=== PATIENT | female | born 1975 | race Caucasian/White ===

== ENCOUNTER 2017-05-23 20:54 | Inpatient (IN) | payer MEDICAID, OTHER ==
[~2017-05-23] VITALS: Ht 175.3 cm; Wt 100.0 kg
[2017-05-24] MEDS ORDERED: Alum-Mag Hydrox-Simeth 30 mL Suspension PO PRN (00:55)
[2017-05-24] MEDS ORDERED: DEP500A PO (02:45)
[2017-05-24] MEDS ORDERED: BENZ2TAB7 PO (03:13)
[2017-05-24] MEDS ORDERED: PROP20TA5 PO (03:13)
[2017-05-24] MEDS ORDERED: PALI234D IM (03:13)
--- NOTE | 2017-05-24 03:33 | NUR ---
Admission Note Patient is a 42 year old female KERVIN on a 72-hour hold brought by EMS to this MH unit from [facility]. Patient presented to [facility] ED on 05/23/17 with complaints of auditory hallucinations and anxiety. She has a history of methamphetamine and cocaine use, with most recent drug use one day prior to that admission. Patient has a history of multiple ER visits with similar symptoms noted previously and is non-compliant with medications. Physical assessment denies any acute medical/physical injury/need and none are apparent. VS wnl, allergies recorded History of depression, drug abuse, asthma, diabetes mellitus, alcoholism, hallucinations, psychosis, ureteritis, cervicitis, schizoaffective disorder Home medications reported include Depakote DR 500 mg PO BID, propranolol 20 mg PO BID, benztropine mesylate 2 mg PO, and Invega Sustenna 234 mg IM Patient is on Medicaid and has a Behavior[facility] family independence case manager, Peter Haji, in [facility] Admitted to this unit at 0025, brought to room and admission completed.
--- NOTE | 2017-05-24 04:14 | NUR ---
ADMIT/[id number] Pt arrived to unit at 0025 via stretcher. Pt sleepy and unable to sign paperwork. Changed clothing and asleep by 0045. Observed Q15 as ordered.
[2017-05-24 08:07] VITALS: BP 87/62; PULSE 72; RESP 14
--- NOTE | 2017-05-24 09:50 | NUR ---
Last Invega Shot given on 05/07/17, next is due on 06/05/17 per Elicia ___ at [facility].
--- NOTE | 2017-05-24 14:19 | NUR ---
Warehouse Selector/Counselor: S: "I want to be in the [employer]." O: Patient slept 5.0 hours last night per staff. Patient denies S/I and H/I. She reports auditory hallucinations, "since I was 2 months old." She also reports visual hallucinations "sometimes." Depression is 0/10. Anxiety was not rated. A: Patient is cooperative, distractible, confused at times, disorganized, anxious, no insight, no judgment. P: Follow the care plan, coordinate with out-patient providers.
[2017-05-24] MEDS ORDERED: risperiDONE 1 mg Tablet PO ONE (14:45)
--- NOTE | 2017-05-24 15:17 | NUR ---
NURSE NOTE DAY Pt has been in room much of shift. Up at 1200 for breakfast. Appears to be responding to internal stimuli. Distractible. Unresponsive to writers questioning. Pleasant, cooperative. BP 87/62 in AM, withheld propranolol. Continue with care plan.
[2017-05-24] MEDS: LORazepam 1 mg Tablet PO PRN (15:45)
--- NOTE | 2017-05-24 19:51 | NUR ---
Observations 1300 - 2000 Pt affect and mood was isolative, guarded, withdrawn, preoccupied and responding to internal stimuli. Pt was screaming, cussing, yelling at her voices. Pt was unsocial with staff and peers when out of her room. Pt attended meals in D.R. and ate 100% of her meals. Pt was yelling and cussing during dinner, staff escorted her to her room to finish her dinner. Pt was in her room most of the shift. Pt was observed every 15 minutes through the shift as ordered.
[2017-05-24] MEDS: risperiDONE 2 mg Tablet PO SCH (21:02)
--- NOTE | 2017-05-24 22:46 | NUR ---
Nurses Note Evening Patient has been screaming and yelling,responding to internal stimuli. She received an Ativan 1 mg at 1545 with eventual calming effect. Patient accepted Risperdal at HS. She ate well at dinner and shortly afterwards retired to bed. Will maintain q 15min. checks for safety and support,encourage continued medication compliance,reality test as tolerated. Addendum: 05/24/17 at 2250 by MAXI MIRANDA RN Amended: Links added.
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
--- NOTE | 2017-05-25 03:59 | NUR ---
Nursing Noc Pt noted to remain in bed this shift resting comfortable. Continuing to monitor mood, behavior and emotional state. q15 minute safety checks throughout the shift. CP
[2017-05-25 09:18] VITALS: BP 88/58; PULSE 111; RESP 18
--- NOTE | 2017-05-25 09:20 | NUR ---
NURSE MED NOTE Withheld 0830 dose of propranolol 20 mg. Blood pressure 88/58, right arm, manual cuff, sitting at 0915. Pulse 111. Respirations 18.
[2017-05-25] MEDS: Benzocaine-Menthol Lozenge 2/Pkg PO PRN ×2 (09:26→16:57)
[2017-05-25] MEDS: LORazepam 1 mg Tablet PO PRN ×2 (10:44→16:53)
--- NOTE | 2017-05-25 14:00 | NUR ---
NURSE NOTE DAY Mood: "I'm feeling pretty anxious, can I get an Ativan?" Endorses anxiety. Denies depression. Affect: Flat. Thought Process/Content: "Don't you put your fucking stefania in my fucking face." Pt observed actively responding to internal stimuli with aggressive, threatening language. Endorses AH, VH (blue and red forms, people following her). Behavior: Pt observed seated at table in dining room cursing and responding to internal stimuli in morning. PRNs/NURS: Gave PRN lorazepam 2 mg at 1045 for anxiety and agitation. Addendum: 05/25/17 at 1410 by ROLDAN BROCK RN Per Dr. Monson, begin taking blood glucose reading QA. Addendum: 05/25/17 at 1816 by ROLDAN BROCK RN PRN: hydroxyzine 50 mg at 1425; lorazepam 2 mg at 1653.
[2017-05-25] MEDS: hydrOXYzine Pamoate 25 mg Capsule PO PRN (14:25)
--- NOTE | 2017-05-25 15:45 | PCM.PNPSY ---
Subjective Date of Service May 25, 2017 Subjective The patient is heard loudly responding to apparent auditory hallucinations. "I had to defend my honor. I don't want to someone. Every one of you bitches are ." "Paid by Nicole Chopra to kill me." The patient required extensive redirection in order to get any answers. The patient expressed concern about propranolol and her low blood pressure. Given her restlessness it appears it was for acathisia but she was unable to discuss this topic. She denied other side effects. Sleep: 10.25 hours per staff. Appetite: Eating well. Suicidal and homicidal ideation: None reported Auditory hallucinations: Responding to multiple apparent loud hallucinations. Visual hallucinations: Unable to assess Other Psychotic Symptoms: Delusions as above Anxiety: 8.5-10 Depression: 8-06/10. Current Medications Current Medications Benzocaine/Menthol 1 lozenge Q2H PRN PO Last administered on 05/25/17 09:26; Admin Dose 1 LOZENGE; Start 05/24/17 at 00:55 Benztropine Mesylate 1 mg BID PO Last administered on 05/25/17 08:50; Admin Dose 1 MG; Start 05/24/17 at 14:40 Benztropine Mesylate 2 mg DAILY PO Last administered on 05/24/17 08:42; Admin Dose 2 MG; Start 05/24/17 at 08:30 Divalproex Sodium 500 mg BID PO Last administered on 05/25/17 08:49; Admin Dose 500 MG; Start 05/24/17 at 00:57 Hydroxyzine Pamoate 25-50 MG Q4H PRN PO Last administered on 05/25/17 14:25; Admin Dose 50 MG; Start 05/24/17 at 01:00 Ibuprofen 600 mg Q6H PRN PO Last administered on 05/24/17 16:49; Admin Dose 600 MG; Start 05/24/17 at 00:55 Lorazepam 1-2 MG Q4 PRN PO Last administered on 05/25/17 10:44; Admin Dose 2 MG; Start 05/24/17 at 01:00 Nicotine 1 patch DAILY TOPICAL Last administered on 05/25/17 08:49; Admin Dose 1 PATCH; Start 05/24/17 at 08:30 Nicotine Polacrilex 2 mg Q4H PRN BUCCAL Last administered on 05/25/17 09:24; Admin Dose 2 MG; Start 05/24/17 at 00:55 Risperidone 2 mg HS PO Last administered on 05/24/17 21:02; Admin Dose 2 MG; Start 05/24/17 at 21:00 Risperidone 2 mg ONCE ONCE PO Last administered on 05/24/17 15:05; Admin Dose 2 MG; Start 05/24/17 at 14:45; Stop 05/24/17 at 14:48; Status DC Mental Status Exam Vital Signs Vital Signs Date Time Temp Pulse Resp B/P Pulse Ox O2 Delivery O2 Flow Rate FiO2 05/25/17 09:18 111 18 88/58 Appearance: Unkept Attitude: Cooperative (marginally), Other (responding to voices.) Behavior: Distractible Affect: Blunted, Other (restless with toe tapping) Mood: Irritable, Anxious, Fearful Thought Process/Associations: Loose, Tangential Speech Production: Loud Speech Rate: Normal Speech Articulation: Other (somewhat dysarthric) Thought Content: Negativistic, Perseveration Danger to Self/Suicidal Ideati: None Danger to Others: None Delusions: Paranoid (Endorses) Hallucinations: Auditory (Endorses), Visual (Denies) Consciousness: Alert, Hyper-vigilant Orientation: Person, Place Memory: Untestable Estimate Intellectual Function: Average (to ), Below Average Attention/Concentration & Cogn: Impaired Insight: Limited Judgement: Poor Mental Health Plan The patient is a 42-year-old female with a history of schizoaffective disorder who was recently switched to Invega Sustenna and appears to have had a decompensation in symptoms. The patient may have sufficient Risperdal or has insufficiently stabilized on the long-acting injectable resulting in her decompensation. Her recent use of methamphetamine has also likely worsened her condition. The patient agreed to a 14 day inpatient order. She has been medication adherent but is concerned about propranolol. The patient continues to respond to internal stimuli and may need further titration of oral risperidone prior to her next Invega injection. [place] AXIS I: 1. Schizoaffective disorder, bipolar type by history. 2. Methamphetamine use disorder. 3. MDMA use disorder. AXIS II: Deferred. AXIS III: See past medical history. AXIS IV: Unknown. AXIS V: Global Assessment of Functioning 25. Treatments 1. The patient is admitted to the [facility] and provided a safe and secure environment. 2. The patient is currently denying suicidal ideation and does not need a one-to-one at this time. 3. The patient is encouraged to participate with the group and milieu activities. 4. The patient will be seen by the treatment team on a daily basis to assess symptom, side effects and response to treatment. 5. Discontinue propranolol 6. Risperdal 2 mg nightly at bedtime. Patient may need higher dose and should be on a longer taper in order to allow for stabilization. 7. Lorazepam 1-2 mg q.4 h. p.r.n. anxiety or agitation. 8. Hydroxyzine 25-50 mg q.4 h. p.r.n. anxiety or agitation. 9. Zolpidem 5 mg nightly p.r.n. insomnia. 10. Anticipated length of stay is 10-14 days. Misbah Monson MD May 25, 2017 15:45
[2017-05-25 17:42] VITALS: BP 95/61; PULSE 126; RESP 20
--- NOTE | 2017-05-25 19:04 | NUR ---
[facility] Day Shift Pt able to maintain behavioral control throughout the shift, but occasionally requires redirection from the dining room (pt becomes quite loud and aggressive when attending to internal stimuli). Pt affect appears mostly flat, blunt. Pt spends most fo the shift resting in her room, but is active on the unit during meal times. Pt is appropriate with staff and peers when active on the unit, but is not social. Pt loudly attends to internal stimuli when active on the unit, but is redirectable. Pt attended all meals and ate approx 100% of all meals.
--- NOTE | 2017-05-25 19:19 | NUR ---
Director Of Analytical Development/Counselor: S: "I have to defend my honor!" O: Patient slept 10.25 hours last night per staff. Patient denies S/I and H/I. She reports auditory hallucinations. She denies visual hallucinations. Depression is 8-9/10. Anxiety is 8.5-9/10. Patient went on to yell, "They got paid by Nicole Chopra to kill me! Everyone of you bitches are and going to hell!" A: Patient is cooperative, unkept, blunted affect, irritable, anxious, fearful, tangential, paranoid, hyper-vigilant, limited insight, poor judgment. P: Follow the care plan, coordinate with out-patient providers.
[2017-05-25] MEDS: risperiDONE 2 mg Tablet PO SCH (20:31)
--- NOTE | 2017-05-25 22:49 | NUR ---
Observations 1900 to 0700 Pt did not eat a snack. Pt remained in bed throughout shift and appeared asleep except for briefly being awoken by staff for med pass. Pt maintained behavioral control and showed no signs of abnormal behavior. Pt appeared asleep since 1900 and has remained asleep. Pt respirations were observed when asleep. Staff completed 15 min close observations as ordered.
--- NOTE | 2017-05-26 05:39 | NUR ---
Nursing Noc Pt isolative to room this shift. Awakens easily for prescribed medications then back to sleep. Continuing to monitor mood, behavior, emotional state and medication effectiveness. Q15 minute safety checks performed as ordered. BHCP
[2017-05-26 11:43] VITALS: BP 103/66; PULSE 111; RESP 22
[2017-05-26] MEDS: Benzocaine-Menthol Lozenge 2/Pkg PO PRN ×2 (13:07→15:48)
--- NOTE | 2017-05-26 13:54 | PCM.PNPSY ---
Subjective Date of Service May 26, 2017 Subjective I spent 30 minutes both reviewing treatment plan with our clinical team, interviewing the patient and providing supportive/educational psychotherapy. I spent more than 50% of the time counseling the patient. I reviewed the treatment plan with the patient and discussed options available including the potential risks, benefits and side effects. Torie reports a slight improvement in thought organization and mood stability. Staff reports that she has been isolating and participating poorly in one-to- one unit and group activities. She slept 11 hours and denies psychotic symptoms review. She denies medication side effects. She was able to identify her medications and what they were used to treat. Current Medications Current Medications Benztropine Mesylate 1 mg BID PO Last administered on 05/26/17 09:31; Admin Dose 1 MG; Start 05/24/17 at 14:40 Risperidone 2 mg HS PO Last administered on 05/25/17 20:31; Admin Dose 2 MG; Start 05/24/17 at 21:00 Risperidone 2 mg ONCE ONCE PO Last administered on 05/24/17 15:05; Admin Dose 2 MG; Start 05/24/17 at 14:45; Stop 05/24/17 at 14:48; Status DC Mental Status Exam Vital Signs Vital Signs Date Time Temp Pulse Resp B/P Pulse Ox O2 Delivery O2 Flow Rate FiO2 05/26/17 11:43 36.8 111 22 103/66 Appearance: Unkept Attitude: Cooperative (marginally), Other (responding to voices.) Behavior: Distractible Affect: Blunted, Other (restless with toe tapping) Mood: Irritable, Anxious, Fearful Thought Process/Associations: Loose, Tangential Speech Production: Loud Speech Rate: Normal Speech Articulation: Other (somewhat dysarthric) Thought Content: Negativistic, Perseveration Danger to Self/Suicidal Ideati: None Danger to Others: None Delusions: Paranoid (Endorses) Hallucinations: Auditory (Endorses) Consciousness: Alert, Hyper-vigilant Orientation: Person, Place Memory: Untestable Estimate Intellectual Function: Average (to ), Below Average Attention/Concentration & Cogn: Impaired Insight: Limited Judgement: Poor Mental Health Plan The patient is a 42-year-old female with a history of schizoaffective disorder who recently used of methamphetamine and had a significant exacerbation of her symptoms. She presented with persecutory delusions, Rapid speech and tangential thought processes. She was yelling unintelligibly at the wall of her emergency department room. She reportedly was not oriented, had poor sleep,had auditory hallucinations, loudly wailing lying at times and unable to provide a reason for her emotional outburst. According to her Behavioral Health resources case checker she had not been taking medications or showing for appointments for the past two weeks. She was recently switched to Invega Sustenna. She has been detained on a 14 day involuntary treatment hold. The patient continues to respond to internal stimuli and may need further titration of oral risperidone prior to her next Invega injection. [place] AXIS I: 1. Schizoaffective disorder, bipolar type by history. 2. Methamphetamine use disorder. 3. MDMA use disorder. AXIS II: Deferred. AXIS III: See past medical history. AXIS IV: Unknown. AXIS V: Global Assessment of Functioning 25. Treatments Patient is being provided with a high degree of safety through our unit structure and active adult engagement provided by our mental health professionals, mental health technicians, psychiatric nurses and myself. We are focusing on developing improved coping skills and identifying stressors that may have led to current episode. We will attempt to: * Integrate into therapeutic groups, milieu and individual therapy. * Maintain in a closely monitored and structured unit * Provide low-stimulation environment * Obtain collateral data to assist in treatment planning * Assess degree of lability of affect and impulse control * Complete safety plan * Decrease frequency of relapse and need for re-hospitalization * Denies thoughts of harm to self and/or others * Establish a consistent sleep pattern * Medication effective in stabilization of mood and/or thought process * Reduce the risk of imminent harm to self and/or others by providing a safe environment * Tolerates medication without side effects * Patient will be on the following psychiatric medications: Risperdal 2 mg nightly at bedtime. In [facility] last Invega injection was on May 07, 2017,and her next is due on June 05, 2017 Education: Educate patient about recreational drug use as an etiology Educate about metabolic etiologies related to obesity Patient's legal status Patient is on a 14 day involuntary treatment hold. Patient will be given the opportunity to talk to her etcher printed circuit boards and the street light servicer Anticipated number of hospital days to achieve above goals: 14 Disposition: Home Sreekanth Arvizu MD May 26, 2017 13:53
[2017-05-26] MEDS: LORazepam 1 mg Tablet PO PRN (15:50)
--- NOTE | 2017-05-26 17:53 | NUR ---
Observations 0700 - 1900 Pt affect and mood was isolative, guarded, withdrawn, preoccupied and responding to internal stimuli. Pt was observed cussing, yelling at her voices but not as much as previous shifts. Pt was unsocial with staff and peers when she comes out of her room. Pt attended meals in D.R. and ate 100% of her meals. Pt was in her room most of the shift but comes out for meals, drinks and snack. Pt declines to participate in unit activities. Pt was observed every 15 minutes through the shift as ordered.
--- NOTE | 2017-05-26 18:50 | NUR ---
[id number]. nurs. S/O: Pt isolative to bedrm, did appear later for meals and returned quickly to bedrm, and was responding aloud to internal stim. Pt requesting and given 2mg of ativan at 1550 when appeared distressed, loudly responding, and stating that voices were preventing her from resting, pt stating no other concerns. Pt returned to bed and then later at dinner time reported ativan helpful. Pt allowed BS OTs brkfast 144, 133, lunch 155. P:CNCP
[2017-05-26] MEDS: risperiDONE 2 mg Tablet PO SCH (21:08)
--- NOTE | 2017-05-27 02:38 | NUR ---
Pt did not eat a snack. Pt remained in bed asleep since start of shift. This play writer did attempt to stir pt for a snack. Behavior could not be observed due to sleep. Pt respirations were observed when asleep. Staff completed 15 min close observations as ordered.
--- NOTE | 2017-05-27 05:40 | NUR ---
Nursing Noc Pt noted to sleep throughout the shift, taking medications as directed. Noted to be talking to self in common area, requesting PRNs fo anxiety. Continuing to monitor mood, behavior, and emotional state. Q15 minute safety checks performed as directed. CP
[2017-05-27] MEDS: LORazepam 1 mg Tablet PO PRN ×2 (10:42→22:56)
--- NOTE | 2017-05-27 11:05 | NUR ---
[id number]. nurs S/O: Pt late out to get brkfast and then in DR loudly responding to internal stimuli, pt unable to focus on surrondings or staff, offered and accepted 2mg of ativan at 1042. Pt later coming to staff to complain of PRO and wanting med. Pt given tylenol 650mg at 1135. At that time pt stated that tylenol had helped, and pt appeared to be more focused on environment and not preoccupied by internal stim. Pt isolating in bedrm mostly. Taking meds as prescribed. P:CNCP
[2017-05-27] MEDS: Benzocaine-Menthol Lozenge 2/Pkg PO PRN ×2 (14:27→22:56)
[2017-05-27] MEDS: hydrOXYzine Pamoate 25 mg Capsule PO PRN (14:27)
--- NOTE | 2017-05-27 14:39 | PCM.PNPSY ---
Subjective Date of Service May 27, 2017 Subjective I spent 30 minutes both reviewing treatment plan with our clinical team, interviewing the patient and providing supportive/educational psychotherapy. I spent more than 50% of the time counseling the patient. I reviewed the treatment plan with the patient and discussed options available including the potential risks, benefits and side effects. Torie reports a slight improvement in thought organization and mood stability. Staff reports that she has continued to isolate in her room and participating poorly in one-to-one unit and group activities. She slept 9 hours and is now complaining of high anxiety and auditory hallucinations. She denies medication side effects. She was able to identify her medications and what they were used to treat. Mental Status Exam Appearance: Unkept Attitude: Cooperative (marginally), Other (responding to voices.) Behavior: Distractible Affect: Blunted, Other (restless with toe tapping) Mood: Irritable, Anxious, Fearful Thought Process/Associations: Loose, Tangential Speech Production: Loud Speech Rate: Normal Speech Articulation: Other (somewhat dysarthric) Thought Content: Negativistic, Perseveration Danger to Self/Suicidal Ideati: None Danger to Others: None Delusions: Paranoid (Endorses) Hallucinations: Auditory (Endorses) Consciousness: Alert, Hyper-vigilant Orientation: Person, Place Memory: Untestable Estimate Intellectual Function: Average (to ), Below Average Attention/Concentration & Cogn: Impaired Insight: Limited Judgement: Limited Mental Health Plan The patient is a 42-year-old female with a history of schizoaffective disorder who recently used of methamphetamine and had a significant exacerbation of her symptoms. She presented with persecutory delusions, Rapid speech and tangential thought processes. She was yelling unintelligibly at the wall of her emergency department room. She reportedly was not oriented, had poor sleep,had auditory hallucinations, loudly wailing lying at times and unable to provide a reason for her emotional outburst. According to her Behavioral Health resources case resolution specialist she had not been taking medications or showing for appointments for the past two weeks. She was recently switched to Invega Sustenna. She has been detained on a 14 day involuntary treatment hold. The patient continues to respond to internal stimuli and may need further titration of oral risperidone prior to her next Invega injection. [place] AXIS I: 1. Schizoaffective disorder, bipolar type by history. 2. Methamphetamine use disorder. 3. MDMA use disorder. AXIS II: Deferred. AXIS III: See past medical history. AXIS IV: Unknown. AXIS V: Global Assessment of Functioning 30. Treatments Patient is being provided with a high degree of safety through our unit structure and active adult engagement provided by our mental health professionals, mental health technicians, psychiatric nurses and myself. We are focusing on developing improved coping skills and identifying stressors that may have led to current episode. We will attempt to: * Integrate into therapeutic groups, milieu and individual therapy. * Maintain in a closely monitored and structured unit * Provide low-stimulation environment * Obtain collateral data to assist in treatment planning * Assess degree of lability of affect and impulse control * Complete safety plan * Decrease frequency of relapse and need for re-hospitalization * Denies thoughts of harm to self and/or others * Establish a consistent sleep pattern * Medication effective in stabilization of mood and/or thought process * Reduce the risk of imminent harm to self and/or others by providing a safe environment * Tolerates medication without side effects * Patient will be on the following psychiatric medications: Risperdal 2 mg nightly at bedtime. In [facility] last Invega injection was on May 07, 2017,and her next is due on June 05, 2017 Education: Educate patient about recreational drug use as an etiology Educate about metabolic etiologies related to obesity Patient's legal status Patient is on a 14 day involuntary treatment hold. Patient will be given the opportunity to talk to her lawyer probate and the private watchman Anticipated number of hospital days to achieve above goals: 14 Disposition: Home Sreekanth Arvizu MD May 27, 2017 14:39
--- NOTE | 2017-05-27 19:55 | NUR ---
behavior/sleep: pt. sleeping during med pass drowsy but arousable, pt. cooperative in taking evening meds, did not want to come out for snack, slept in room most of evening.
[2017-05-27] MEDS: risperiDONE 2 mg Tablet PO SCH (20:36)
[2017-05-28 09:30] VITALS: BP 104/78; PULSE 112
[2017-05-28] MEDS: Benzocaine-Menthol Lozenge 2/Pkg PO PRN ×3 (09:33→15:50)
--- NOTE | 2017-05-28 14:52 | PCM.PNPSY ---
Subjective Date of Service May 28, 2017 Subjective I spent 30 minutes both reviewing treatment plan with our clinical team, interviewing the patient and providing supportive/educational psychotherapy. I spent more than 50% of the time counseling the patient. I reviewed the treatment plan with the patient and discussed options available including the potential risks, benefits and side effects. Torie reports continued improvement in thought organization and mood stability. Staff reports that she has continued to isolate in her room and participating poorly in one-to-one unit and group activities. She slept 9 hours and is now complaining of high anxiety and auditory hallucinations. She denies medication side effects Mental Status Exam Appearance: Unkept Attitude: Pleasant, Cooperative (marginally), Other Behavior: No unusual behavior Affect: Blunted Mood: Euthymic Thought Process/Associations: Goal Directed Speech Production: Loud Speech Rate: Normal Speech Articulation: Other (somewhat dysarthric) Thought Content: Negativistic, Perseveration Danger to Self/Suicidal Ideati: None Danger to Others: None Consciousness: Alert Orientation: Person, Place Memory: Grossly Intact Estimate Intellectual Function: Average (to ) Basis for IQ estimate: Awareness current events, Word use/vocabulary, Educational history, Employment history Attention/Concentration & Cogn: Impaired Insight: Limited Judgement: Limited Mental Health Plan The patient is a 42-year-old female with a history of schizoaffective disorder who recently used of methamphetamine and had a significant exacerbation of her symptoms. She presented with persecutory delusions, Rapid speech and tangential thought processes. She was yelling unintelligibly at the wall of her emergency department room. She reportedly was not oriented, had poor sleep,had auditory hallucinations, loudly wailing lying at times and unable to provide a reason for her emotional outburst. According to her Behavioral Health resources case worker she had not been taking medications or showing for appointments for the past two weeks. She was recently switched to Invega Sustenna. She has been detained on a 14 day involuntary treatment hold. The patient is no longer responding to internal stimuli and will likely be ready for discharge within the next week. [place] AXIS I: 1. Schizoaffective disorder, bipolar type by history. 2. Methamphetamine use disorder. 3. MDMA use disorder. AXIS II: Deferred. AXIS III: See past medical history. AXIS IV: Unknown. AXIS V: Global Assessment of Functioning 35. Treatments Patient is being provided with a high degree of safety through our unit structure and active adult engagement provided by our mental health professionals, mental health technicians, psychiatric nurses and myself. We are focusing on developing improved coping skills and identifying stressors that may have led to current episode. We will attempt to: * Integrate into therapeutic groups, milieu and individual therapy. * Maintain in a closely monitored and structured unit * Provide low-stimulation environment * Obtain collateral data to assist in treatment planning * Assess degree of lability of affect and impulse control * Complete safety plan * Decrease frequency of relapse and need for re-hospitalization * Denies thoughts of harm to self and/or others * Establish a consistent sleep pattern * Medication effective in stabilization of mood and/or thought process * Reduce the risk of imminent harm to self and/or others by providing a safe environment * Tolerates medication without side effects * Patient will be on the following psychiatric medications: Risperdal 2 mg nightly at bedtime. In [facility] last Invega injection was on May 07, 2017,and her next is due on June 05, 2017 Education: Educate patient about recreational drug use as an etiology Educate about metabolic etiologies related to obesity Patient's legal status Patient is on a 14 day involuntary treatment hold. Patient will be given the opportunity to talk to her choirmaster and the continuous pickling line pickler Anticipated number of hospital days to achieve above goals: 14 Disposition: Home Sreekanth Arvizu MD May 28, 2017 14:52
--- NOTE | 2017-05-28 15:53 | NUR ---
Orthotics Prosthetics Assistant/Counselor S:"Big hands are coming for me." O: Patient denies any SI or HI, stated that she hears the voice of someone named Charles, and sees big hands reaching for her. She rated her anxiety and depression at a 10. A: Patient was garbled and disoriented. Disorganized and tangential. Poor insight. P: Follow care plan and coordinate with outpatient providers.
--- NOTE | 2017-05-28 17:57 | NUR ---
Nursing Day Shift: S: "They tell me they are going to kill me." O: Patient acknowledging AH per above. VH "I see my ". Anxiety and depression both "a 7-8". Denies current harmful thoughts. Has been in her room a good amount of the shift. Out for meals and snacks with a good appetite. Some interaction with staff and peers. A: Flat affect. Responds to IS. P: CPOC. Monitor mood and behavior.
[2017-05-28] MEDS: hydrOXYzine Pamoate 25 mg Capsule PO PRN (18:31)
--- NOTE | 2017-05-28 18:43 | NUR ---
Observations [id number] Pt continues to be very internally preoccupied, today observed to present much louder and angry at times. Pt good with ADL's, showered and attended all meals. She presents with a large appetite. Pt cooperative with staff and friendly with peers. She was observed every 15 minutes of shift as directed.
[2017-05-28] MEDS: risperiDONE 2 mg Tablet PO SCH (20:36)
--- NOTE | 2017-05-29 06:29 | NUR ---
Nursing Note Chief Creative Officer 7pm-7am Patient reports anxiety and depression 8/10 this shift. States she hears the voice of her childhood friend. Patient stated he's just talking to me. He was my friend growing up in the [place]. Patient reports seeing colors, blue and green. Patient isolating in room, but did come out to milieu for snack. She reported needing something to help her sleep and complained of headache and lower back pain level 05/10. Patient was given Ambien 5 mg at 2036 and Tylenol 650 mg at 2042. Patient was noted to be asleep at 2129 and through the rest of the night. Pt monitored q 15 minutes for safety, location and accountability.
[2017-05-29] MEDS: Benzocaine-Menthol Lozenge 2/Pkg PO PRN (09:17)
--- NOTE | 2017-05-29 11:24 | NUR ---
Nursing Dayshift: S: "I am hearing voices. I can't tell what they are saying." O: Patient acknowledging AH though stating hearing them in the background. VH "I see colors, many colors in spots all around". Anxiety 02/07 and depression a 03/10. Denies harmful thoughts. Good appetite at meals and snacks. Pleasant on approach. Smiles during interaction. A: Calmer. More animated. P: CPOC. Monitor mood and behavior. Addendum: 05/29/17 at 1822 by SERENA IBARRA RN Patient screaming and ran to her room after dinner. Stated "there are people chasing me!" Also stated they were yelling loudly at her. Agreed to take some medication to help with the voices. called and ordered a 2 mg dose of Risperdal and 2 mg Ativan now which patient received with effective results per patient. Will continue to monitor.
--- NOTE | 2017-05-29 12:33 | PCM.PNPSY ---
Subjective Date of Service May 29, 2017 Subjective I spent 30 minutes both reviewing treatment plan with our clinical team, interviewing the patient and providing supportive/educational psychotherapy. I spent more than 50% of the time counseling the patient. I reviewed the treatment plan with the patient and discussed options available including the potential risks, benefits and side effects. Torie reports continued improvement in thought organization and mood stability. Staff reports that she has continued to isolate in her room and participating poorly in one-to-one unit and group activities. She slept 9 hours and is now complaining of high anxiety and auditory hallucinations. She denies medication side effects Mental Status Exam Appearance: Unkept Attitude: Pleasant, Cooperative, Other Behavior: No unusual behavior Affect: Well Modulated/Appropriate Mood: Euthymic Thought Process/Associations: Goal Directed Speech Production: Normal, Loud Speech Rate: Normal Speech Articulation: Normal Thought Content: Appropriate Danger to Self/Suicidal Ideati: None Danger to Others: None Consciousness: Alert Orientation: Person, Place, Date, Situation Memory: Grossly Intact Estimate Intellectual Function: Average (to ) Basis for IQ estimate: Awareness current events, Word use/vocabulary, Educational history, Employment history Attention/Concentration & Cogn: Grossly Intact, Impaired Cognitive Testing Method: Abstract Reasoning during interview, Proverb interpretation Insight: Limited Judgement: Limited Mental Health Plan The patient is a 42-year-old female with a history of schizoaffective disorder who recently used of methamphetamine and had a significant exacerbation of her symptoms. She presented with persecutory delusions, Rapid speech and tangential thought processes. She was yelling unintelligibly at the wall of her emergency department room. She reportedly was not oriented, had poor sleep,had auditory hallucinations, loudly wailing lying at times and unable to provide a reason for her emotional outburst. According to her Behavioral Health resources shelter case manager she had not been taking medications or showing for appointments for the past two weeks. She was recently switched to Invega Sustenna. She has been detained on a 14 day involuntary treatment hold. The patient no longer appears to be responding to internal stimuli and will likely be ready for discharge within the next week. [place] AXIS I: 1. Schizoaffective disorder, bipolar type by history. 2. Methamphetamine use disorder. 3. MDMA use disorder. AXIS II: Deferred. AXIS III: See past medical history. AXIS IV: Unknown. AXIS V: Global Assessment of Functioning 35. Treatments Patient is being provided with a high degree of safety through our unit structure and active adult engagement provided by our mental health professionals, mental health technicians, psychiatric nurses and myself. We are focusing on developing improved coping skills and identifying stressors that may have led to current episode. We will attempt to: * Integrate into therapeutic groups, milieu and individual therapy. * Maintain in a closely monitored and structured unit * Provide low-stimulation environment * Obtain collateral data to assist in treatment planning * Assess degree of lability of affect and impulse control * Complete safety plan * Decrease frequency of relapse and need for re-hospitalization * Denies thoughts of harm to self and/or others * Establish a consistent sleep pattern * Medication effective in stabilization of mood and/or thought process * Reduce the risk of imminent harm to self and/or others by providing a safe environment * Tolerates medication without side effects * Patient will be on the following psychiatric medications: Risperdal 2 mg nightly at bedtime. In [facility] last Invega injection was on May 07, 2017,and her next is due on June 05, 2017 Education: Educate patient about recreational drug use as an etiology Educate about metabolic etiologies related to obesity Patient's legal status Patient is on a 14 day involuntary treatment hold. Patient will be given the opportunity to talk to her ranch hand and the maintenance mechanic supervisor Anticipated number of hospital days to achieve above goals: 14 Disposition: Home Sreekanth Arvizu MD May 29, 2017 12:32
[2017-05-29 13:00] VITALS: BP 106/67; PULSE 100; RESP 15
[2017-05-29] MEDS: hydrOXYzine Pamoate 25 mg Capsule PO PRN (13:23)
[2017-05-29] MEDS: risperiDONE 2 mg Tablet PO SCH ×2 (16:42→20:19)
[2017-05-29] MEDS: LORazepam 1 mg Tablet PO PRN (16:42)
--- NOTE | 2017-05-29 17:30 | NUR ---
Observations [id number] Pt very internally preoccupied, talking to voices and at times becoming very violent with language and upset. Pt at times was able to be redirected and other times, staff were unable to get a response. Pt is cooperative with staff and other patients. She attended all meals, eating 100%. Pt good with ADL's, appears to enjoy showering as a method to help calm herself. Pt spent much of the day in room, resting, but did spend time watching TV. Pt was observed every 15 minutes of shift as directed.
--- NOTE | 2017-05-30 04:36 | NUR ---
Nursing Noc Pt isolative to room, reported A/V hallucinations. No evening snack this shift, taking medications as prescribed. Continuing to monitor mood behavior, =medication effects, and sleep quality and quantity. CP
[2017-05-30] MEDS: Benzocaine-Menthol Lozenge 2/Pkg PO PRN (08:41)
[2017-05-30 12:33] VITALS: BP 113/76; PULSE 96
--- NOTE | 2017-05-30 14:09 | PCM.PNPSY ---
Subjective Date of Service May 30, 2017 Subjective I spent 30 minutes both reviewing treatment plan with our clinical team, interviewing the patient and providing supportive/educational psychotherapy. I spent more than 50% of the time counseling the patient. I reviewed the treatment plan with the patient and discussed options available including the potential risks, benefits and side effects. Torie reports continued improvement in thought organization and mood stability. Staff reports that she has continued to isolate in her room and participating poorly in one-to-one unit and group activities. She slept well but continues to complain of high anxiety. The severity of her auditory hallucinations has significantly decreased per her report on the current medication regimen. She denies medication side effects Mental Status Exam Vital Signs Vital Signs Date Time Temp Pulse Resp B/P Pulse Ox O2 Delivery O2 Flow Rate FiO2 05/30/17 12:33 36.3 96 113/76 Appearance: Unkept Attitude: Pleasant, Cooperative, Other Behavior: No unusual behavior Affect: Well Modulated/Appropriate Mood: Euthymic Thought Process/Associations: Goal Directed Speech Production: Normal, Loud Speech Rate: Normal Speech Articulation: Normal Thought Content: Appropriate Danger to Self/Suicidal Ideati: None Danger to Others: None Consciousness: Alert Orientation: Person, Place, Date, Situation Memory: Grossly Intact Estimate Intellectual Function: Average (to ) Basis for IQ estimate: Awareness current events, Word use/vocabulary, Educational history, Employment history Attention/Concentration & Cogn: Grossly Intact, Impaired Cognitive Testing Method: Abstract Reasoning during interview, Proverb interpretation Insight: Limited Judgement: Limited Mental Health Plan The patient is a 42-year-old female with a history of schizoaffective disorder who recently used of methamphetamine and had a significant exacerbation of her symptoms. She presented with persecutory delusions, Rapid speech and tangential thought processes. She was yelling unintelligibly at the wall of her emergency department room. She reportedly was not oriented, had poor sleep,had auditory hallucinations, loudly wailing lying at times and unable to provide a reason for her emotional outburst. According to her Behavioral Health resources case liner she had not been taking medications or showing for appointments for the past two weeks. She was recently switched to Invega Sustenna. She has been detained on a 14 day involuntary treatment hold. The patient no longer appears to be responding to internal stimuli and will likely be ready for discharge within the next week. [place] AXIS I: 1. Schizoaffective disorder, bipolar type by history. 2. Methamphetamine use disorder. 3. MDMA use disorder. AXIS II: Deferred. AXIS III: See past medical history. AXIS IV: Unknown. AXIS V: Global Assessment of Functioning 35. Treatments Patient is being provided with a high degree of safety through our unit structure and active adult engagement provided by our mental health professionals, mental health technicians, psychiatric nurses and myself. We are focusing on developing improved coping skills and identifying stressors that may have led to current episode. We will attempt to: * Integrate into therapeutic groups, milieu and individual therapy. * Maintain in a closely monitored and structured unit * Provide low-stimulation environment * Obtain collateral data to assist in treatment planning * Assess degree of lability of affect and impulse control * Complete safety plan * Decrease frequency of relapse and need for re-hospitalization * Denies thoughts of harm to self and/or others * Establish a consistent sleep pattern * Medication effective in stabilization of mood and/or thought process * Reduce the risk of imminent harm to self and/or others by providing a safe environment * Tolerates medication without side effects * Patient will be on the following psychiatric medications: Risperdal 2 mg nightly at bedtime. In [facility] last Invega injection was on May 07, 2017,and her next is due on June 05, 2017 Education: Educate patient about recreational drug use as an etiology Educate about metabolic etiologies related to obesity Patient's legal status Patient is on a 14 day involuntary treatment hold. Patient will be given the opportunity to talk to her market editor and the dump grader Anticipated number of hospital days to achieve above goals: 14 Disposition: Home Sreekanth Arvizu MD May 30, 2017 14:09
[2017-05-30] MEDS: LORazepam 1 mg Tablet PO PRN ×2 (15:52→23:48)
--- NOTE | 2017-05-30 17:23 | NUR ---
[id number]. nurs S/O: Pt isolative to bedrm for large part of day ,and either sleeping or very actively preoccupied and responding to internal stim. Pt appears to be having a verbally aggressive angry abusive interaction with AHs, occasional some inappropriate loud laughing. Pt taking meds as sheduled and coming out for meals. Pt does not interact with others. When pt is preoccupied it is v. difficult to rouse her to focus on a real interaction, and will need several loud attempts to redirect or gain her attention. Pt offered and accepted 2 mg of ativan at 1540 and stated that med helps her cope with intrusive AHs. P:CNCP
--- NOTE | 2017-05-30 19:50 | NUR ---
Obs Dayshift Pt is polite, smiling, and good eye contact upon approach. When not talking w/ staff she is fully engaged w/ IS, having conversations w/ multi A/H. Pt talks very loudly and stares at the ground, it can take multi attempts by staff to get her attention during these loud, aggressive moments. Pt is appropriate w/ med requests and offers. Pt can be very disruptive on the milieu due to responding to IS, but can be redirected. Good ADL's, Good meals
[2017-05-30] MEDS: risperiDONE 2 mg Tablet PO SCH (20:32)
[2017-05-30] MEDS: hydrOXYzine Pamoate 25 mg Capsule PO PRN (23:48)
--- NOTE | 2017-05-31 00:52 | NUR ---
Nursing Noc Pt responding to internal A/V hallucinations. Reports voices loud and demanding. Pt took HS snack and requested available PRNs to help with sleep. Pt pleasant A+Ox3 but quickly distracted by internal stimuli. Continuing to monitor mood, medication effectiveness, behavior, and emotional state. Q15 minute safety checks throughout the shift as ordered. CP
[2017-05-31] MEDS ORDERED: risperiDONE 2 mg Tablet PO ONE (02:30)
[2017-05-31 09:30] VITALS: BP 109/70; PULSE 110; RESP 16
[2017-05-31] MEDS: LORazepam 1 mg Tablet PO PRN ×2 (09:48→16:10)
[2017-05-31 12:21] VITALS: BP 92/62; PULSE 108; RESP 24
--- NOTE | 2017-05-31 15:30 | PCM.PNPSY ---
Subjective Date of Service May 31, 2017 Subjective I spent 30 minutes both reviewing treatment plan with our clinical team, interviewing the patient and providing supportive/educational psychotherapy. I spent less than 50% of the time counseling the patient as she was feeling tired. I reviewed the treatment plan with the patient and discussed options available including the potential risks, benefits and side effects. Torie reports continued improvement in thought organization and mood stability. Staff reports that she has continued to isolate in her room and participating poorly in one-to-one unit and group activities. She slept well but continues to complain of high anxiety. The severity of her auditory hallucinations has significantly decreased per her report on the current medication regimen. She denies medication side effects Current Medications Current Medications Risperidone 2 mg OT ONCE PO Last administered on 05/31/17 02:45; Admin Dose 2 MG; Start 05/31/17 at 02:30; Stop 05/31/17 at 02:31; Status DC Zolpidem Tartrate 5-10 MG HS PRN PO Last administered on 05/31/17 02:45; Admin Dose 5 MG; Start 05/31/17 at 02:29 Mental Status Exam Vital Signs Vital Signs Date Time Temp Pulse Resp B/P Pulse Ox O2 Delivery O2 Flow Rate FiO2 05/31/17 12:21 36.4 108 24 92/62 05/31/17 09:30 35.7 110 16 109/70 Appearance: Unkept Attitude: Pleasant, Cooperative, Other Behavior: No unusual behavior Affect: Well Modulated/Appropriate Mood: Euthymic Thought Process/Associations: Goal Directed Speech Production: Normal Speech Rate: Normal Speech Articulation: Normal Thought Content: Appropriate Danger to Self/Suicidal Ideati: None Danger to Others: None Consciousness: Alert Orientation: Person, Place, Date, Situation Memory: Grossly Intact Estimate Intellectual Function: Average (to ) Basis for IQ estimate: Awareness current events, Word use/vocabulary, Educational history, Employment history Attention/Concentration & Cogn: Grossly Intact, Impaired Cognitive Testing Method: Abstract Reasoning during interview, Proverb interpretation Insight: Limited Judgement: Limited Mental Health Plan The patient is a 42-year-old female with a history of schizoaffective disorder who recently used of methamphetamine and had a significant exacerbation of her symptoms. She presented with persecutory delusions, Rapid speech and tangential thought processes. She was yelling unintelligibly at the wall of her emergency department room. She reportedly was not oriented, had poor sleep,had auditory hallucinations, loudly wailing lying at times and unable to provide a reason for her emotional outburst. According to her Behavioral Health resources showcase maker she had not been taking medications or showing for appointments for the past two weeks. She was recently switched to Invega Sustenna. She has been detained on a 14 day involuntary treatment hold. The patient no longer appears to be responding to internal stimuli and will likely be ready for discharge within the next week. [place] AXIS I: 1. Schizoaffective disorder, bipolar type by history. 2. Methamphetamine use disorder. 3. MDMA use disorder. AXIS II: Deferred. AXIS III: See past medical history. AXIS IV: Unknown. AXIS V: Global Assessment of Functioning 35. Treatments Patient is being provided with a high degree of safety through our unit structure and active adult engagement provided by our mental health professionals, mental health technicians, psychiatric nurses and myself. We are focusing on developing improved coping skills and identifying stressors that may have led to current episode. We will attempt to: * Integrate into therapeutic groups, milieu and individual therapy. * Maintain in a closely monitored and structured unit * Provide low-stimulation environment * Obtain collateral data to assist in treatment planning * Assess degree of lability of affect and impulse control * Complete safety plan * Decrease frequency of relapse and need for re-hospitalization * Denies thoughts of harm to self and/or others * Establish a consistent sleep pattern * Medication effective in stabilization of mood and/or thought process * Reduce the risk of imminent harm to self and/or others by providing a safe environment * Tolerates medication without side effects * Patient will be on the following psychiatric medications: Risperdal 2 mg nightly at bedtime. In [facility] last Invega injection was on May 07, 2017,and her next is due on June 05, 2017 Education: Educate patient about recreational drug use as an etiology Educate about metabolic etiologies related to obesity Patient's legal status Patient is on a 14 day involuntary treatment hold. Patient will be given the opportunity to talk to her cone picker and the deputy attorney general Anticipated number of hospital days to achieve above goals: 14 Disposition: Home Sreekanth Arvizu MD May 31, 2017 15:30
--- NOTE | 2017-05-31 16:38 | NUR ---
Observations 0700 to 1900 Pt attended community meeting and was observed talking to self. Pt ate a snack. Pt did enjoy time on patio. Pt was isolative and spends free time resting in bed. Pt maintained behavioral control. Respirations were observed while asleep. Breakfast: 100%. Lunch: 100%. Staff completed 15 min close observations as ordered.
--- NOTE | 2017-05-31 18:19 | NUR ---
Visual Educator/Counselor: S: "I'm ready to discharge." O: Patient slept 8 hours last night per staff. Patient denies S/I and H/I. She reports auditory hallucinations. She denies visual hallucinations. Depression and anxiety were not rated. A: Patient is cooperative, unkept, blunted affect, irritable, anxious, fearful, tangential, paranoid, hyper-vigilant, limited insight, poor judgment. P: Follow the care plan, coordinate with out-patient providers, monitor behavior.
--- NOTE | 2017-05-31 18:47 | NUR ---
[id number]. nurs. S: "I want to see the Dr and the counsellor about discharging I want to go home I can't afford medication at home, I have a motel rm arranged" Pt stating she wants to return home. Pr states that she came in voluntarily is on 14MRO. Pt requesting medication for anxiety at 1610 and given 1 mg of ativan while she was responding loudly to AHs .Pt also asked for motrin for joint pain and given at that time also and reported later that med effective for clearing her head. Pt did have some decrease in intensity of intrusive AHs. Pt advised that she had had IM med and was to have another dose on 5th and seemed to accept that it was impt to have more time on meds and grtr stability before discharging P:CNCP
[2017-05-31] MEDS: risperiDONE 2 mg Tablet PO SCH (21:18)
--- NOTE | 2017-06-01 03:28 | NUR ---
Nursing Noc Pt out to common area for snacks, then isolative to room for the rest of the evening. Responding to internal stimuli, but reported to be not as intrusive as previous days. Pleasant cooperative with zero disturbing behavioral issues this shift. Continuing to monitor mood, behavior, emotional state and sleep times. Q15 minute safety checks performed throughout the shift. CP.
[2017-06-01] MEDS: Benzocaine-Menthol Lozenge 2/Pkg PO PRN (09:53)
[2017-06-01] MEDS: LORazepam 1 mg Tablet PO PRN ×2 (11:19→19:44)
[2017-06-01 12:45] VITALS: BP 109/73; PULSE 99; RESP 16
[2017-06-01] MEDS ORDERED: LORA10CA9 PO (12:58)
--- NOTE | 2017-06-01 13:04 | NUR ---
Nursing Note [id number] Behavior S/O: Pt has good appetite. Pt becomes involved with conversations to herself & sometimes won't answer direct questions. Pt talking to unseen person & addressed them as "mama" & "daddy." Pt yelling at voices at 1115 this afternoon. Verbal order obtained from Dr. Arvizu for Haldol 5 mg one time dose due now. Given with Ativan 1 mg. Pt has been able to calm down at this time. Blood sugar at 0730 was 130 & at 1130 was 183. A: Pt appears to be responding to internal stimuli. P: Provide supportive environment. Monitor medications & effects.
--- NOTE | 2017-06-01 13:35 | PCM.PNPSY ---
Subjective Date of Service Jun 01, 2017 Subjective I spent 30 minutes both reviewing treatment plan with our clinical team, interviewing the patient and providing supportive/educational psychotherapy. I spent less than 50% of the time counseling the patient as she was feeling tired. I reviewed the treatment plan with the patient and discussed options available including the potential risks, benefits and side effects. Torie reports continued improvement in thought organization and mood stability. Staff reports that she has continued to isolate in her room and participating poorly in one-to-one unit and group activities. She slept well but continues to complain of high anxiety. The severity of her auditory hallucinations has significantly decreased per her report on the current medication regimen but the staff continues to state she is responding to internal stimuli and arguing with her voices when she is alone. She denies medication side effects Current Medications Current Medications Haloperidol 5 mg OT ONCE PO Last administered on 06/01/17 12:12; Admin Dose 5 MG; Start 06/01/17 at 11:45; Stop 06/01/17 at 11:46; Status DC Risperidone 2 mg OT ONCE PO Last administered on 05/31/17 02:45; Admin Dose 2 MG; Start 05/31/17 at 02:30; Stop 05/31/17 at 02:31; Status DC Zolpidem Tartrate 5-10 MG HS PRN PO Last administered on 05/31/17 02:45; Admin Dose 5 MG; Start 05/31/17 at 02:29 Mental Status Exam Appearance: Unkept Attitude: Pleasant, Cooperative, Other Behavior: No unusual behavior Affect: Well Modulated/Appropriate Mood: Euthymic Thought Process/Associations: Goal Directed Speech Production: Normal Speech Rate: Normal Speech Articulation: Normal Thought Content: Appropriate Danger to Self/Suicidal Ideati: None Danger to Others: None Hallucinations: Auditory (Endorses) Consciousness: Alert Orientation: Person, Place, Date, Situation Memory: Grossly Intact Estimate Intellectual Function: Average (to ) Basis for IQ estimate: Awareness current events, Word use/vocabulary, Educational history, Employment history Attention/Concentration & Cogn: Grossly Intact, Impaired Cognitive Testing Method: Abstract Reasoning during interview, Proverb interpretation Insight: Limited Judgement: Limited Mental Health Plan The patient is a 42-year-old female with a history of schizoaffective disorder who recently used of methamphetamine and had a significant exacerbation of her symptoms. She presented with persecutory delusions, Rapid speech and tangential thought processes. She was yelling unintelligibly at the wall of her emergency department room. She reportedly was not oriented, had poor sleep,had auditory hallucinations, loudly wailing lying at times and unable to provide a reason for her emotional outburst. According to her Behavioral Health resources manager case management she had not been taking medications or showing for appointments for the past two weeks. She has been active in participating well in the unit program. She is been taking medications as prescribed. Today Torie reports continued improvement in thought organization and mood stability. She slept well but continues to complain of high anxiety. The severity of her auditory hallucinations has significantly decreased per her report on the current medication regimen but the staff continues to state she is responding to internal stimuli and arguing with her voices when she is alone. She was recently switched to [facility]. She has been detained on a 14 day involuntary treatment hold. She has been appearing to respond to internal stimuli over the past 24 hours and was willing to have her medications increased. If she continues to stabilize and improve I believe she will likely be ready for discharge within the next week. [place] AXIS I: 1. Schizoaffective disorder, bipolar type by history. 2. Methamphetamine use disorder. 3. MDMA use disorder. AXIS II: Deferred. AXIS III: See past medical history. AXIS IV: Unknown. AXIS V: Global Assessment of Functioning 35. Treatments Patient is being provided with a high degree of safety through our unit structure and active adult engagement provided by our mental health professionals, mental health technicians, psychiatric nurses and myself. We are focusing on developing improved coping skills and identifying stressors that may have led to current episode. We will attempt to: * Integrate into therapeutic groups, milieu and individual therapy. * Maintain in a closely monitored and structured unit * Provide low-stimulation environment * Obtain collateral data to assist in treatment planning * Assess degree of lability of affect and impulse control * Complete safety plan * Decrease frequency of relapse and need for re-hospitalization * Denies thoughts of harm to self and/or others * Establish a consistent sleep pattern * Medication effective in stabilization of mood and/or thought process * Reduce the risk of imminent harm to self and/or others by providing a safe environment * Tolerates medication without side effects * Patient will be on the following psychiatric medications: Change Risperdal to 2 mg twice a day starting 06/01/2017 In [facility] last Invega injection was on May 07, 2017,and her next is due on June 05, 2017 Education: Educate patient about recreational drug use as an etiology Educate about metabolic etiologies related to obesity Patient's legal status Patient is on a 14 day involuntary treatment hold. Anticipated number of hospital days to achieve above goals: Recommend client remained for the full 14 hold Disposition: Sreekanth Chester MD Jun 01, 2017 13:35
[2017-06-01] MEDS ORDERED: PROP10TA8 PO (13:47)
[2017-06-01] MEDS ORDERED: OLAN5TAB PO (13:55)
[2017-06-01] MEDS ORDERED: METF500T4 PO (13:55)
[2017-06-01] MEDS: risperiDONE 2 mg Tablet PO SCH (19:42)
--- NOTE | 2017-06-01 20:30 | NUR ---
Green Chain Offbearer/Counselor: S: "I'm supposed to discharge Sunday." O: Patient slept 9 hours last night per staff. Patient denies S/I and H/I. She reports auditory hallucinations. She denies visual hallucinations. Depression is 0/10 and anxiety is 0/10. This freelance writer spoke with patient's out-patient counselor, Bozena Mendoza, at [facility] ([facility] and the agency is requesting a 90 day LRO due to patient's past history of non-med compliance and patient not showing up to appointments. Patient's out-patient counselor, Bozena, requested that [facility] pillowcase cleaner call [facility], , to try and get patient a bed upon patient's discharge. Patient's out-patient appointments have already been scheduled by this freelance writer. A: Patient is cooperative, unkept, blunted affect, pleasant, limited insight, poor judgment. P: Follow the care plan, coordinate with out-patient providers. Addendum: 06/01/17 at 2037 by RUTH ANN LLANOS [facility] Patient's counselor stated that their agency will have someone package pick up patient upon patient's arrival to [place].
--- NOTE | 2017-06-01 23:55 | NUR ---
Noc OBS [id number] Pt in room most of evening, coming out for snack and to check the time. Pt observed speaking in deep voice and having two sided conversation, two different voices, while eating snack. Notes feeling better and pleasant when engaged by staff. Asleep 2145 with a few quick times up for drink or to check the time. Observed Q15 as ordered.
--- NOTE | 2017-06-02 05:06 | NUR ---
nursing, nights, 11-7 s/o- has appeared to sleep after 2144 during q 15 minute assessments. a- no apparent distress. p- monitor behavior/emotional state, quality, times and amount of sleep, use and effect of medication. brionna
[2017-06-02] MEDS: risperiDONE 2 mg Tablet PO SCH ×2 (08:13→20:07)
[2017-06-02] MEDS: Benzocaine-Menthol Lozenge 2/Pkg PO PRN ×2 (08:27→13:51)
[2017-06-02 09:45] VITALS: BP_SYST 100; BP_SYST 115; BP_DIAS 63; BP_DIAS 71; PULSE 102; PULSE 68; RESP 15; RESP 18
[2017-06-02] MEDS: Magnesium Hydroxide 10 mL Oral Concentration PO PRN (11:50)
--- NOTE | 2017-06-02 13:30 | NUR ---
Nursin to 1500 S/O: Torie was out in DR for meals, snacks and to work on coloring. Observed moving lips and making low talking noises with no peer around her. When not in the DR, she was in her room talking and laughing in a loud voice. When staff came to her room, she was able to direct her attention to rewriter and answer question. Directable and cooperative. Discharge planning: [place] in area when Torie came to [facility] from, called and talked to RN about arrangements to product picker Torie at 3 pm on Jun.05, 3 pm (IF she is discharged), transport her to [facility], and on to her home. He was transferred to pillowcase turner's extension to leave information about this. PRN's Requested and rec'd MOM at 1150 for constipation. Had requested and received nicotine losenges at 0800 and 1150. A: Responding to internal stimuli. P: Assess for MOM effect. Observe for effects of med. Addendum: 06/02/17 at 1340 by ANDREAS JOY RN Amended: Links added. Addendum: 06/02/17 at 1425 by ANDREAS JOY RN At 1415, Torie made loud screaming noise and slammed her door after following MHA down [address]. Ativan 2 mg and Vistaril 50 mg po prn offered pt and she accepted at 1430.
--- NOTE | 2017-06-02 16:26 | PCM.PNPSY ---
Subjective Date of Service Jun 02, 2017 Subjective The patient reports that she is somewhat tired today but this is unusual and is otherwise did not feeling "a lot better." The patient is still experiencing auditory hallucinations but she describes them as "tolerable" and experiences them every couple of hours. She reported seeing some colored spots this morning but they resolved and is seen nothing further. She was noted several hours later to be yelling in her room. Sleep: 8 hours "sleeping better" Appetite: "Eating better" Suicidal and homicidal ideation: Denies Auditory hallucinations: As above Visual hallucinations: As above Other Psychotic Symptoms: Appears to have mild thought blocking. Anxiety: "So-so" -03/10 Depression: 04/09 Current Medications Current Medications Divalproex Sodium 750 mg BID PO Last administered on 06/02/17 08:13; Admin Dose 750 MG; Start 06/01/17 at 20:30 Haloperidol 5 mg OT ONCE PO Last administered on 06/01/17 12:12; Admin Dose 5 MG; Start 06/01/17 at 11:45; Stop 06/01/17 at 11:46; Status DC Metformin HCl 500 mg BIDWM PO Last administered on 06/02/17 08:13; Admin Dose 500 MG; Start 06/01/17 at 17:30 Risperidone 2 mg BID PO Last administered on 06/02/17 08:13; Admin Dose 2 MG; Start 06/01/17 at 20:30 Mental Status Exam Vital Signs Vital Signs Date Time Temp Pulse Resp B/P Pulse Ox O2 Delivery O2 Flow Rate FiO2 06/02/17 09:45 36.2 102 18 115/71 Appearance: Unkept Attitude: Pleasant, Cooperative Behavior: Other (yelling at unseen others) Affect: Well Modulated/Appropriate Mood: Euthymic Thought Process/Associations: Goal Directed Speech Production: Normal Speech Rate: Normal Speech Articulation: Normal Thought Content: Appropriate Danger to Self/Suicidal Ideati: None Danger to Others: None Hallucinations: Auditory (Endorses), Visual (Endorses) Consciousness: Alert Orientation: Person, Place, Date, Situation Memory: Grossly Intact Estimate Intellectual Function: Average Basis for IQ estimate: Word use/vocabulary, Educational history, Employment history Attention/Concentration & Cogn: Impaired Insight: Limited Judgement: Limited Mental Health Plan The patient is a 42-year-old female with a history of schizoaffective disorder who was recently switched to Invega Sustenna and appears to have had a decompensation in symptoms. The patient may have sufficient Risperdal or has insufficiently stabilized on the long-acting injectable resulting in her decompensation. Her recent use of methamphetamine has also likely worsened her condition. The patient agreed to a 14 day inpatient order. The patient has made significant progress since restarting oral Risperdal but continues to respond to internal stimuli at times. [place] AXIS I: 1. Schizoaffective disorder, bipolar type by history. 2. Methamphetamine use disorder. 3. MDMA use disorder. AXIS II: Deferred. AXIS III: See past medical history. AXIS IV: Unknown. AXIS V: Global Assessment of Functioning 35. Medications Benztropine 1mg twice daily. Risperdal 2mg twice daily Divalproex 750mg po bid Metformin 500mg po bidwm Lorazepam 1-2mg po q4hr prn Hydroxyzine 25-50 mg by mouth every 4 hours Zolpidem 5-10mg po hs prn insomnia Treatments 1. The [facility] is [facility] and provided a safe and secure environment. 2. The patient is currently denying suicidal ideation and does not need a one-to-one at this time. 3. The patient is encouraged to participate with the group and milieu activities. 4. The patient will be seen by the treatment team on a daily basis to assess symptom, side effects and response to treatment. 5. Check Depakote level, CBC, CMP in a.m. 6. Anticipated length of stay is 10-14 days. Misbah Monson MD Jun 02, 2017 16:26
--- NOTE | 2017-06-02 16:58 | NUR ---
Observations 0900 to 2130 Pt ate a snack. Pt spends free time coloring in dining room and resting in bed. Pt showered and had clothes washed. Pt is observed responding to internal stimuli, in which she laughs randomly, yells and talks to self. Pt is pleasant with staff and peers. Pt maintained behavioral control. Pt respirations were observed when asleep. Staff completed 15 min close observations as ordered.
[2017-06-02] MEDS: hydrOXYzine Pamoate 25 mg Capsule PO PRN (20:06)
--- NOTE | 2017-06-02 23:13 | NUR ---
Nurses Note Evening Patient remains cooperative with several episodes of yelling at internal stimuli. She remained in behavioral control. Her mood has been generally pleasant,making good eye contact. She remains medication compliant without adverse effects. Will maintain q 15min. checks for safety and support,reality test as tolerated. Addendum: 06/02/17 at 0017 by MAXI MIRANDA RN Amended: Links added.
--- NOTE | 2017-06-03 04:59 | NUR ---
nursing, nights, 11-7 s/o- has appeared to sleep after [id number] and after 2214 during q 15 minute assessments. a- no apparent distress. p- monitor behavior/emotional state, quality, times and amount of sleep, use and effect of medication. brionna
[2017-06-03] MEDS: LORazepam 1 mg Tablet PO PRN ×2 (06:50→15:29)
[2017-06-03] MEDS: risperiDONE 2 mg Tablet PO SCH ×2 (06:51→15:30)
[2017-06-03] MEDS: Magnesium Hydroxide 10 mL Oral Concentration PO PRN (07:16)
[2017-06-03] MEDS: Benzocaine-Menthol Lozenge 2/Pkg PO PRN ×2 (07:16→13:31)
[2017-06-03 10:51] LABS: BASOPHILS % (AUTO) 0.5 % (0-3); EOSINOPHILS % (AUTO) 0 % (0-5); MONOCYTES % (AUTO) 6.4 % (4-12); Mean Corpuscular Hemoglobin 29.3 pg (27.0-35.0); Mean Corpuscular Volume 88.5 fL (81-100); NEUTROPHILS % (AUTO) 42.3 % (40-74); Platelet Count 326 bil/L (150-400)
--- NOTE | 2017-06-03 14:28 | NUR ---
Nursing 7a-3p Pt agitated at another peer this morning but able to calm and returned to her room instead of engaging further. Morning BG 123. Later she and this female peer apologized to each other. She continues to respond to internal stimuli. Pleasant and cooperative upon interaction. Took scheduled medication without difficulty. Prn medications include Nicorette lozenge, MOM 10ml po, and Cepacol lozenge. She has been napping throughout the day. Minimal group engagement.
--- NOTE | 2017-06-03 15:22 | PCM.PNPSY ---
Subjective Date of Service Jun 03, 2017 Subjective The patient was quite irritable this morning but called after morning medication. Although drowsy she was reporting that she was "tired" and denied acute symptoms. The patient's Depakote level was 103 today. Sleep: 10 hours Appetite: "Okay" Suicidal and homicidal ideation: Denies Auditory hallucinations: Denies Visual hallucinations: Denies Other Psychotic Symptoms: Unable to assess due to somnolence Current Medications Current Medications Divalproex Sodium 750 mg BID PO Last administered on 06/03/17 07:44; Admin Dose 750 MG; Start 06/01/17 at 20:30 Metformin HCl 500 mg BIDWM PO Last administered on 06/03/17 07:44; Admin Dose 500 MG; Start 06/01/17 at 17:30 Risperidone 2 mg BID PO Last administered on 06/03/17 06:51; Admin Dose 2 MG; Start 06/01/17 at 20:30 Mental Status Exam Appearance: Neat/well groomed Attitude: Cooperative, Other (somnolent) Behavior: Other Affect: Restricted Mood: Other (somnolent) Thought Process/Associations: Goal Directed Speech Production: Paucity Speech Rate: Lags/Latency Speech Articulation: Slurred Thought Content: Appropriate Danger to Self/Suicidal Ideati: None Danger to Others: None Hallucinations: Auditory (Denies), Visual (Denies) Consciousness: Somnolent Orientation: Person, Place Memory: Grossly Intact Estimate Intellectual Function: Average Basis for IQ estimate: Word use/vocabulary, Educational history, Employment history Attention/Concentration & Cogn: Impaired Insight: Limited Judgement: Limited Result Diagram: 06/03/17 0954 06/03/17 0954 Mental Health Plan The patient is a 42-year-old female with a history of schizoaffective disorder who was recently switched to Invega Sustenna and appears to have had a decompensation in symptoms. The patient may have insufficient oral Risperdal or has insufficiently stabilized on the long-acting injectable resulting in her decompensation. Her recent use of methamphetamine has also likely worsened her condition. The patient agreed to a 14 day inpatient order. The patient has made significant progress since restarting oral Risperdal but continues to respond to internal stimuli at times. Depakote appears at a therapeutic level in the upper range and will not be increased at this time. [place] AXIS I: 1. Schizoaffective disorder, bipolar type by history. 2. Methamphetamine use disorder. 3. MDMA use disorder. AXIS II: Deferred. AXIS III: See past medical history. AXIS IV: Unknown. AXIS V: Global Assessment of Functioning 35. Medications Benztropine 1mg twice daily. Risperdal 2mg twice daily Divalproex 750mg po bid Metformin 500mg po bidwm Lorazepam 1-2mg po q4hr prn Hydroxyzine 25-50 mg by mouth every 4 hours Zolpidem 5-10mg po hs prn insomnia Treatments 1. The patient is admitted to the [facility] and provided a safe and secure environment. 2. The patient is currently denying suicidal ideation and does not need a one-to-one at this time. 3. The patient is encouraged to participate with the group and milieu activities. 4. The patient will be seen by the treatment team on a daily basis to assess symptom, side effects and response to treatment. 5. Continue current medication 6. Anticipated length of stay is 10-14 days. Misbah Monson MD Jun 03, 2017 15:21
[2017-06-03] MEDS: hydrOXYzine Pamoate 25 mg Capsule PO PRN (15:30)
--- NOTE | 2017-06-03 15:30 | NUR ---
Nurses PRN Patient screaming at internal stimuli with increasing agitation and inability to focus on staff interaction,received Risperdal 2mg and Benadryl 50mg,will assess response.
--- NOTE | 2017-06-03 18:25 | NUR ---
Observations [id number] Pt yelling in dining area upon start of shift, which lead to argument with another pt. Pt was redirectable and went to room. Pt continued to talk to voices throughout the day, spent lots of time in her room resting. Pt did participate in art group. She was good with ADL's, showered and asked for a change of clothes. Pt attended all meals, was observed every 15 minutes of shift as directed.
[2017-06-03] MEDS ORDERED: risperiDONE 2 mg Tablet PO ONE (21:00)
--- NOTE | 2017-06-03 23:35 | NUR ---
Nurses Note Evening Patient had periods of increased agitation responding to inner stimulation that quieted with administration of Risperdal 2mg at 1530. Patients' mood improved as well her affect. Her appetite,hygiene have been within normal limits. Will continue to assess thought processes,medication efficacy alert to side effects. Addendum: 06/03/17 at 2340 by MAXI MIRANDA RN Amended: Links added.
[2017-06-04] MEDS: hydrOXYzine Pamoate 25 mg Capsule PO PRN ×2 (03:52→17:08)
[2017-06-04] MEDS: LORazepam 1 mg Tablet PO PRN ×2 (03:53→15:38)
--- NOTE | 2017-06-04 06:03 | NUR ---
Nursing Note Upper Cutter Out 11pm to 7am Pt asleep at start of shift. Woke up at 0350 complaining of anxiety 8/10 triggered by a dream of being chased by cannibals. Pt given Ativan 2 mg and went back to sleep. No issues reported or observed. Monitored q 15 minutes for safety, location, and accountability.
[2017-06-04] MEDS ORDERED: Divalproex (QD) 250 mg ER24 Tablet PO ONE (09:51)
[2017-06-04] MEDS: risperiDONE 2 mg Tablet PO SCH ×2 (09:53→17:09)
[2017-06-04] MEDS: Benzocaine-Menthol Lozenge 2/Pkg PO PRN (09:57)
[2017-06-04 11:10] VITALS: BP 102/62; PULSE 118; RESP 17
--- NOTE | 2017-06-04 13:40 | NUR ---
Nursing 7a-3p Pt reports "voices are okay", denies anxiety. She is happy to be discharging but states "Do I have to go to Crisis Respite? I have been talking to my landlord, I would like to go back to my apartment." Pt encouraged to talk to her case management team about going back to her apartment. Pt pleasant/cooperative upon interaction. Actively responding to internal stimuli when by herself. Taking medications as scheduled.
--- NOTE | 2017-06-04 15:42 | PCM.PNPSY ---
Subjective Date of Service Jun 04, 2017 Subjective The patient reports that the increase in Risperdal was helpful for her hallucinations last night. She denies side effects today. She discussed that she does not care for Invega and would prefer to be on Risperdal. We discussed using constant potentially as an alternative and the patient was open to the idea. Sleep: 8.5 hours, "pretty good except for having a nightmare about cannibals eating little kids" the patient reported that she was trying to run away from them. Appetite: Increased a little Suicidal and homicidal ideation: Denies Auditory hallucinations: "Not as bad" Visual hallucinations: Denies Other Psychotic Symptoms: N/A Anxiety: "So-so" Depression: Current Medications Current Medications Risperidone 2 mg HS ONCE PO Last administered on 06/03/17t 21:19; Admin Dose 2 MG; Start 06/03/17 at 21:00; Stop 06/03/17 at 21:01; Status DC Mental Status Exam Vital Signs Vital Signs Date Time Temp Pulse Resp B/P Pulse Ox O2 Delivery O2 Flow Rate FiO2 06/04/17 11:10 35.8 118 17 102/62 Appearance: Neat/well groomed Attitude: Pleasant, Cooperative Behavior: No unusual behavior Affect: Well Modulated/Appropriate Mood: Anxious (mild) Thought Process/Associations: Goal Directed Speech Production: Normal Speech Rate: Normal Speech Articulation: Normal Thought Content: Appropriate Danger to Self/Suicidal Ideati: None Danger to Others: None Hallucinations: Auditory (Endorses), Visual (Denies) Consciousness: Alert Orientation: Person, Place, Date, Situation Memory: Grossly Intact Estimate Intellectual Function: Average Basis for IQ estimate: Word use/vocabulary, Educational history, Employment history Attention/Concentration & Cogn: Impaired Insight: Limited Judgement: Limited Result Diagram: 06/03/17 0954 06/03/17 0954 Mental Health Plan The patient is a 42-year-old female with a history of schizoaffective disorder who was recently switched to Invega Sustenna and appears to have had a decompensation in symptoms. The patient may have insufficient oral Risperdal or has insufficiently stabilized on the long-acting injectable resulting in her decompensation. Her recent use of methamphetamine has also likely worsened her condition. The patient agreed to a 14 day inpatient order. The patient has made significant progress since restarting oral Risperdal but continues to respond to internal stimuli at times. Depakote appears at a therapeutic level in the upper range and will not be increased at this time. The patient may benefit from Risperdal Consta instead of Invega Sustenna but is unclear whether the outpatient team will agree with this plan and so this will need to be discussed on Sunday. [place] AXIS I: 1. Schizoaffective disorder, bipolar type by history. 2. Methamphetamine use disorder. 3. MDMA use disorder. AXIS II: Deferred. AXIS III: See past medical history. AXIS IV: Unknown. AXIS V: Global Assessment of Functioning 35. Medications Benztropine 1mg twice daily. Risperdal 2mg twice daily Divalproex 750mg po bid Metformin 500mg po bidwm Lorazepam 1-2mg po q4hr prn Hydroxyzine 25-50 mg by mouth every 4 hours Zolpidem 5-10mg po hs prn insomnia Treatments 1. The patient is admitted to the [facility] and provided a safe and secure environment. 2. The patient is currently denying suicidal ideation and does not need a one-to-one at this time. 3. The patient is encouraged to participate with the group and milieu activities. 4. The patient will be seen by the treatment team on a daily basis to assess symptom, side effects and response to treatment. 5. Continue current medication, we will discuss potential Consta use with outpatient provider. 6. Anticipated length of stay is 10-14 days. Misbah Monson MD Jun 04, 2017 15:42
--- NOTE | 2017-06-04 17:30 | NUR ---
Station Usher/Counselor S:"Am I under arrest?" O: Patient denies any SI or HI, and stated that the voices were not bad. Rated her anxiety and depression at a 4-5. A: Patient scheduled to be discharged on 06/05/2017. States that she feels pretty good but had a nightmare about Cannibals. Patient is responding to internal stimuli. Has been out on the unit and interactive. P: Follow care plan and coordinate with outpatient providers.
[2017-06-04] MEDS: Divalproex (QD) 250 mg ER24 Tablet PO SCH (20:26)
--- NOTE | 2017-06-04 23:45 | NUR ---
NURSE NOTE EVENING SHIFT [id number]: Pt requested something for anxiety at the beginning of the shift, stating she was anxious about where she was going to live when she leaves. Pt was responding to internal stimuli, said yes when asked if she was hearing voices, but was able to clearly communicate her needs and responses appropriately. Around 1700, Pt was watching TV and began to yell at AV. Staff escorted Pt to her room where she rested until dinner. Pt remained calm the rest of the evening, going to bed at approx. 2030. Pt monitored q15 minutes for location, safety and accountability.
--- NOTE | 2017-06-05 03:25 | NUR ---
Observations 1900 to 0700 Pt ate a snack. Pt keeps to self, spending free time resting in bed. Pt was overheard talking to self. Pt maintained behavioral control. Pt appeared asleep at 2100. Pt respirations were observed when asleep. Staff completed 15 min close observations as ordered.
--- NOTE | 2017-06-05 07:16 | NUR ---
Nursing note 11pm to 7am Pt asleep at start of shift and remained asleep for the duration of the shift. Monitored pt for safety, location and accountability
[2017-06-05] MEDS: Divalproex (QD) 250 mg ER24 Tablet PO SCH (07:53)
[2017-06-05] MEDS: risperiDONE 2 mg Tablet PO SCH (07:53)
--- NOTE | 2017-06-05 13:00 | PCM.DIMED ---
Discharge Instructions Date of Service Jun 05, 2017 Dates of Hospitalization May 24, 2017 at 00:34 Discharge Diagnosis Discharge Diagnosis AXIS I: 1. Schizoaffective disorder, bipolar type by history. 2. Methamphetamine use disorder. 3. MDMA use disorder. AXIS II: Deferred. AXIS III: Diabetes, seizures by hx but patient denies "not for a long time.", a history of LOC/TBIs x 13 AXIS IV: Moderate AXIS V: Global Assessment of Functioning 40. Medication Instructions Additional med instructions Please discuss with your provider switching from Invega Sustenna 234mg IM q 4 weeks to Risperdal Consta 50mg IM q 2 weeks at your next visit on 06/06/17. Test Results Test Results Laboratory Tests 72 Hours Test 06/03/17 09:54 White Blood Count 7.9th/mm3 (3.8-10.1) Red Blood Count 4.43mil/mm3 (3.90-5.20) Hemoglobin 13.0g/dL (12.0-15.6) Hematocrit 39.2% (35.0-46.0) Mean Corpuscular Volume 88.5fL (81-100) Mean Corpuscular Hemoglobin 29.3pg (27.0-35.0) Mean Corpuscular Hemoglobin Concent 33.2% (32.0-37.0) Red Cell Distribution Width 12.8% (12.3-15.4) Platelet Count 326bil/L (150-400) Neutrophils (%) (Auto) 42.3% (40-74) Lymphocytes (%) (Auto) 50.5% (14-46) Monocytes (%) (Auto) 6.4% (4-12) Eosinophils (%) (Auto) 0% (0-5) Basophils (%) (Auto) 0.5% (0-3) Sodium Level 136mEq/L (134-144) Potassium Level 4.7mEq/L (3.5-5.2) Chloride Level 95mEq/L (97-108) Carbon Dioxide Level 24mmol/L (18-29) Blood Urea Nitrogen 15mg/dL (6-24) Creatinine 0.68mg/dL (0.57-1.00) Estimat Glomerular Filtration Rate 135mL/min (>59) Glucose Level 174mg/dL (60-99) Calcium Level 9.7mg/dL (8.5-10.1) Total Bilirubin 0.2mg/dL (0.0-1.2) Aspartate Amino Transf (AST/SGOT) 11U/L (0-50) Alanine Aminotransferase (ALT/SGPT) 11U/L (0-32) Alkaline Phosphatase 83U/L (25-150) Total Protein 6.7g/dL (6.4-8.4) Albumin 4.0g/dL (3.4-5.0) Valproic Acid (Depakene) Level 103ug/mL (50-125) Diet Discharge Diet: Diabetic Activity Discharge Activity: No restrictions Patient Instructions Patient Instructions Should you have any thoughts of harming yourself or others, please call the crisis line, your provider, 911, or go to the nearest Emergency Department. Do not change or discontinue your medications without discussing with your provider. You have been given a prescription for 30 days supply of your new medication Follow-up plan Field Marketing Specialist Bozena Mendoza on 06/06/17 at 2:30pm [address] [place] [id number] Medication Management GERALDINE Montero on 06/11/17 at 10:00am [address] [place] [id number] Misbah Monson MD Jun 05, 2017 13:00 Misbah Monson MD Jun 05, 2017 13:00
[2017-06-05] MEDS ORDERED: HYDR-3797 PO (13:09)
[2017-06-05] MEDS ORDERED: PALI234D IM (13:09)
[2017-06-05] MEDS ORDERED: METF500T4 PO (13:09)
[2017-06-05] MEDS ORDERED: BENZ1TAB7 PO (13:09)
[2017-06-05] MEDS ORDERED: RISP2TAB21 PO (13:09)
[2017-06-05] MEDS ORDERED: DIVA250T12 PO (13:09)
--- NOTE | 2017-06-05 15:24 | NUR ---
Discharge Pt left at 1512 accompanied by case management retail team leader from [place]. Her case management team is driving her either to crisis respite or her own apartment if allowed by her landlord. She left with all belongings. Signed all discharge instructions. Prescriptions faxed to her pharmacy. Pt smiling and looking forward to going home.
--- NOTE | 2017-06-05 17:43 | NUR ---
Group Home Counselor/Counselor S:" I want to go to my apartment, not that other place." O: Patient denies any SI or HI, stated her voices were better than normal, and rated her depression at a 7 and her anxiety at a 4-5. A:Patient was discharged to the care of Cm from [facility] in [place], [place]. She will be taken to the [facility] for follow up care. All necessary paperwork has been faxed. P: Follow discharge instructions.
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
== END 2017-06-05 15:13 | disposition home or self-care (01) | DRG 885 ==
LOC: MHC 20:54 → UNDOADMIN 20:54 → MHC 05-24 00:34
PROVIDERS: ADMIT Psychiatry & Neurology Psychiatry; ATTEND Psychiatry & Neurology Psychiatry
DX: F25.0 Schizoaffective disorder, bipolar type (principal); Z59.0 Homelessness; F15.90 Other stimulant use, unspecified, uncomplicated; F19.90 Other psychoactive substance use, unspecified, uncomplicated